=== PATIENT | male | born 1970 | race African-American/Black ===

== ENCOUNTER 2017-10-26 09:05 | Observation (INO) | payer BC, OTHER ==
[~2017-10-26] VITALS: Ht 180.3 cm; Wt 150.0 kg
[~2017-10-26 09:05] MED LIST: ALBU90OI INH; ALBU90OI6 INH; AZIT250 PO; Coreg12.5 MG PO; ENTRESTO 24 MG1 EACH PO; FURO40 PO; HYDCHL25 PO; LEVFLO500 PO; LOSA50 PO; METO25ER PO; PHENA200 PO; POTA10T PO; RXOXYACE PO; RXPHEN200 PO; TORSE20 PO
[2017-10-26 10:04] LABS: BASOPHILS ABSOLUTE AUTO 0.02 K/mm3 (0.00-0.23); BASOPHILS PERCENT AUTO 0 % (0-2); EOSINOPHILS ABSOLUTE AUTO 0.31 K/mm3 (0.00-0.68); EOSINOPHILS PERCENT AUTO 6 % (0-6); Hematocrit 41.6 % (37.0-53.0); Hemoglobin 13.3 g/dL (13.5-17.5); IMMATURE GRAN ABSOLUTE AUTO 0.01 K/mm3 (0.00-0.10); IMMATURE GRAN PERCENT AUTO 0 % (0-1); LYMPHOCYTES ABSOLUTE AUTO 1.62 K/mm3 (0.84-5.20); LYMPHOCYTES PERCENT AUTO 30 % (21-46); MONOCYTES ABSOLUTE AUTO 0.62 K/mm3 (0.16-1.47); MONOCYTES PERCENT AUTO 12 % (4-13); Mean Corpuscular HGB 27.4 pg (26.0-34.0); Mean Corpuscular Volume 86 fL (80-100); Mean Platelet Volume 9.7 fL (9.1-12.4); NEUTROPHILS ABSOLUTE AUTO 2.81 K/mm3 (1.96-9.15); NEUTROPHILS PERCENT AUTO 52 % (41-73); Platelet Count 150 K/mm3 (150-400); RDW Coefficient Variation 14.5 % (11.7-14.2); RDW Standard Deviation 45.7 fL (35.1-46.3); Red Blood Cell Count 4.85 M/mm3 (4.30-5.90); White Blood Cell Count 5.39 K/mm3 (4.00-11.30)
[2017-10-26 10:34] LABS: Anion Gap 4 mmol/L (6-16); Blood Urea Nitrogen 15 mg/dL (8-24); Bun/Creatinine Ratio 16.6 (12.0-20.0); CO2, Blood 31 mmol/L (21-32); Calcium, Blood 8.6 mg/dL (8.5-10.1); Chloride, Blood 106 mmol/L (98-108); Creatinine, Blood 0.91 mg/dL (0.60-1.20); Glomerular Filtration Rate >60 (60-); Glucose, Blood 93 mg/dL (70-99); Potassium, Blood 3.7 mmol/L (3.5-5.5); Sodium, Blood 141 mmol/L (136-145)
== END 2017-10-26 18:40 | disposition home or self-care (01) ==
LOC: MHTC 09:05 → PCU 14:04 → MHTC 14:30 → PCU 14:30
PROVIDERS: Internal Medicine Clinical Cardiac Electrophysiology
PROC: 02HK3JZ Insertion of Pacemaker Lead into Right Ventricle, Percutaneous Approach (ICD-10-PCS; principal; 2017-10-26)
PROC: 02H43JZ Insertion of Pacemaker Lead into Coronary Vein, Percutaneous Approach (ICD-10-PCS; principal; 2017-10-26)
PROC: 02H63JZ Insertion of Pacemaker Lead into Right Atrium, Percutaneous Approach (ICD-10-PCS; principal; 2017-10-26)
PROC: 0JH607Z Insertion of Cardiac Resynchronization Pacemaker Pulse Generator into Chest Subcutaneous Tissue and Fascia, Open Approach (ICD-10-PCS; principal; 2017-10-26)
DX: I42.0 Dilated cardiomyopathy (principal); I44.7 Left bundle-branch block, unspecified; I11.0 Hypertensive heart disease with heart failure; I50.20 Unspecified systolic (congestive) heart failure; E66.01 Morbid (severe) obesity due to excess calories; Z68.42 Body mass index [BMI] 45.0-49.9, adult; Z88.8 Allergy status to other drugs, medicaments and biological substances; Z79.899 Other long term (current) drug therapy
CPT/HCPCS: 33225; 33249; 71046; 80048; 85025; 93005; 93010; 99152; 99153; C1769; C1777; C1882; C1898; C1900; G0378; J0690; J1200; J1644; J2250; J2405; J3010; J7030; J7040; Q9967

== ENCOUNTER 2021-04-01 00:44 | Day surgery (SDC) | payer OTHER | END 2021-04-01 23:27 | disposition home or self-care (01) | LOC: WOUND 00:44 | DX: L97.221 Non-pressure chronic ulcer of left calf limited to breakdown of skin (principal); L03.116 Cellulitis of left lower limb; S81.802D Unspecified open wound, left lower leg, subsequent encounter; X58.XXXD Exposure to other specified factors, subsequent encounter | CPT/HCPCS: G0463 ==

== ENCOUNTER 2022-01-14 13:04 | Day surgery (SDC) | payer OTHER ==
[~2022-01-14] VITALS: Ht 180.3 cm; Wt 149.4 kg
== END 2022-01-14 15:27 | disposition home or self-care (01) ==
LOC: ORSCSDS 13:04
PROVIDERS: Internal Medicine Gastroenterology
PROC: 0DBK8ZX Excision of Ascending Colon, Via Natural or Artificial Opening Endoscopic, Diagnostic (ICD-10-PCS; principal; 2022-01-14 14:30)
PROC: 0DBP8ZX Excision of Rectum, Via Natural or Artificial Opening Endoscopic, Diagnostic (ICD-10-PCS; principal; 2022-01-14 14:30)
DX: Z12.11 Encounter for screening for malignant neoplasm of colon (principal); Z80.0 Family history of malignant neoplasm of digestive organs; D12.8 Benign neoplasm of rectum; K57.30 Diverticulosis of large intestine without perforation or abscess without bleeding; K64.8 Other hemorrhoids; G47.33 Obstructive sleep apnea (adult) (pediatric); E66.01 Morbid (severe) obesity due to excess calories; Z68.42 Body mass index [BMI] 45.0-49.9, adult; E11.9 Type 2 diabetes mellitus without complications
CPT/HCPCS: 82947; 88305; J0330; J0461; J2405; J2704; J7120

== ENCOUNTER 2022-07-29 12:26 | Day surgery (SDC) | payer OTHER ==
[~2022-07-29] VITALS: Ht 180.3 cm; Wt 153.2 kg
== END 2022-07-29 15:00 | disposition home or self-care (01) ==
LOC: ORSCSDS 12:26
PROVIDERS: Internal Medicine Gastroenterology
PROC: 0DBP8ZX Excision of Rectum, Via Natural or Artificial Opening Endoscopic, Diagnostic (ICD-10-PCS; principal; 2022-07-29 13:45)
DX: Z86.010 Personal history of colon polyps (principal); K62.1 Rectal polyp; K57.30 Diverticulosis of large intestine without perforation or abscess without bleeding; K64.8 Other hemorrhoids; G47.33 Obstructive sleep apnea (adult) (pediatric); E66.01 Morbid (severe) obesity due to excess calories; Z68.42 Body mass index [BMI] 45.0-49.9, adult; I10 Essential (primary) hypertension; Z95.0 Presence of cardiac pacemaker; E11.9 Type 2 diabetes mellitus without complications; Z79.899 Other long term (current) drug therapy
CPT/HCPCS: 82947; 88305; J2704; J7120

== ENCOUNTER → 2024-04-10 | Outpatient (CLI) | payer OTHER | LOC: LAB 16:58 → LAB SHORT 16:58 | DX: I10 Essential (primary) hypertension (principal); J45.20 Mild intermittent asthma, uncomplicated | CPT/HCPCS: 82043 ==

== ENCOUNTER 2025-01-12 07:53 | Day surgery (SDC) | payer OTHER ==
[~2025-01-12] VITALS: Ht 180.3 cm; Wt 134.7 kg
[2025-01-12] MEDS ORDERED: Lactated Ringer's 1,000 ML IV ONE ×2 (07:57→08:59)
[2025-01-12] MEDS ORDERED: ATOR20 (08:31)
[2025-01-12] MEDS ORDERED: Vitamin C100 M1 (08:31)
[2025-01-12] MEDS ORDERED: Vitamin D1000 UNI1 (08:33)
[2025-01-12] MEDS ORDERED: FARXIGA10 MG (08:33)
[2025-01-12] MEDS ORDERED: OZEMPIC0.25 MG/02 (08:33)
[2025-01-12] MEDS ORDERED: CENTRUM SILVER1 EAC2 (08:33)
[2025-01-12] MEDS ORDERED: SPIR25 (08:34)
[2025-01-12] MEDS ORDERED: TAMS.4ER (08:34)
[2025-01-12] MEDS ORDERED: SILD50TA (08:34)
[2025-01-12] MEDS ORDERED: propofoL 50 ML IV ONE (09:26)
[2025-01-12] MEDS ORDERED: Etomidate 2MG / ML 10ML Vial ONE (09:28)
[2025-01-12 10:23] VITALS: BP 113/66
== END 2025-01-12 10:24 | disposition home or self-care (01) ==
LOC: ORSCSDS 07:53
PROVIDERS: Specialist
PROC: 0DJD8ZZ Inspection of Lower Intestinal Tract, Via Natural or Artificial Opening Endoscopic (ICD-10-PCS; principal; 2025-01-12 09:45)
DX: Z12.11 Encounter for screening for malignant neoplasm of colon (principal); Z86.0100 Personal history of colon polyps, unspecified; K64.8 Other hemorrhoids; K57.30 Diverticulosis of large intestine without perforation or abscess without bleeding; G47.30 Sleep apnea, unspecified; I10 Essential (primary) hypertension; J45.909 Unspecified asthma, uncomplicated; I47.10 Supraventricular tachycardia, unspecified; E78.5 Hyperlipidemia, unspecified; Z95.0 Presence of cardiac pacemaker; E11.9 Type 2 diabetes mellitus without complications; G47.33 Obstructive sleep apnea (adult) (pediatric); E66.01 Morbid (severe) obesity due to excess calories; Z68.41 Body mass index [BMI] 40.0-44.9, adult; Z79.85 Long-term (current) use of injectable non-insulin antidiabetic drugs; Z79.84 Long term (current) use of oral hypoglycemic drugs; Z79.899 Other long term (current) drug therapy
CPT/HCPCS: 82947; J2704; J7120